=== PATIENT | male | born 1950 | race Caucasian/White ===

== ENCOUNTER 2025-04-15 13:12 | Emergency (ER) | payer OTHER, SELFPAY ==
--- NOTE | ~2025-04-15 | XR_ITS ---
EXAM/PROCEDURE: XR chest 2V - 04/15/2025 13:30 CDT HISTORY: 74 years old Male with cough, chest congestion x 8 days, non smoker TECHNIQUE: Two view(s) of the chest. COMPARISON: None available. FINDINGS: LUNGS/ PLEURA: No focal consolidation. Mild perihilar bronchial wall thickening. HEART/ MEDIASTINUM: Heart appears normal in size. BONES: No acute osseous abnormality. OTHER: Visualized upper abdomen is unremarkable. IMPRESSION: No focal consolidation. Mild perihilar bronchial wall thickening, findings suggestive of respiratory bronchiolitis. Reviewed, dictated and finalized at location A. IMPRESSION: No focal consolidation. Mild perihilar bronchial wall thickening, findings sugg estive of respiratory bronchiolitis.
[2025-04-15 13:17] VITALS: BP 133/79; PULSE 80; RESP 16; TEMP 36.4; O2SAT 97
--- NOTE | 2025-04-15 13:19 | ED_ITS ---
HPI - URI/Sore Throat General Chief Complaint: Upper Respiratory Infection Stated Complaint: Congestion/Cough Source: patient and RN notes reviewed Mode of arrival: ambulatory Limitations: no limitations History of Present Illness HPI Narrative: Patient is a 74-year-old male who presents to the [facility] with complaints of cough and congestion for the past 8-10 days. Patient reports frequent productive cough. States that he has had some nasal congestion that has caused some postnasal drip. He denies chest pain or shortness of breath. Denies recent fevers. States that his symptoms started shortly after cleaning out some weeds/overgrown plantation. Related Data Home Medications ?Medication ?Instructions ?Recorded ?Confirmed ?Last Taken ?Type amlodipine 10 mg tablet mg 04/15/25 Unknown History carbamazepine 400 mg mg PO 04/15/25 Unknown History tablet,extended release,12 hr ezetimibe 10 mg tablet mg 04/15/25 Unknown History gemfibrozil 600 mg tablet mg 04/15/25 Unknown History Allergies Allergy/AdvReac Type Severity Reaction Status Date / Time shellfish derived AdvReac Intermediate hives Verified 04/15/25 13:23 Review of Systems Review of Systems: CONSTITUTIONAL: Denies fever, chills, or sweats. EYES: Denies visual changes, redness, or discharge. ENT: Denies otalgia and sore throat. Reports congestion. CARDIOVASCULAR: Denies chest pain, palpitations, or edema. RESPIRATORY: Reports cough but denies dyspnea. GASTROINTESTINAL: Denies abdominal pain, nausea, vomiting, or diarrhea. GENITOURINARY: Denies dysuria or hematuria. SKIN: Denies rash or itching. MUSCULOSKELETAL: Denies back pain, joint pain, or myalgia. NEUROLOGIC: Denies headache, numbness, or weakness. Pertinent positives per HPI. PMFSH Comments At the time of my signature, I reviewed and agree with the nursing past medical, surgical, social, and family history. There is no relevant family history pertinent to the patient complaint. Exam Narrative: GENERAL: This is a well-nourished, well-developed patient, in no apparent distress. HEAD: normocephalic, atraumatic. EYES: Sclera clear/white. Vision is grossly intact. EARS: External ears normal. Hearing grossly intact. NOSE: External nose normal. + congestion. THROAT: Mucous membranes moist, posterior pharynx clear. NECK: Neck supple, non-tender without lymphadenopathy, masses or thyromegaly. CARDIOVASCULAR: Regular rate and rhythm without murmurs, gallops, or rubs. RESPIRATORY: Clear to auscultation. Breath sounds equal bilaterally. No wheezes, rales, or rhonchi. GASTROINTESTINAL: Abdomen soft, non-tender, nondistended. Bowel sounds are active. No hepato-splenomegaly, or palpable masses. No guarding. SKIN: warm, intact with no suspicious lesions or rash, good texture and turgor. NEURO: awake, alert, and oriented to person, place and time. There were no obvious focal neurologic abnormalities. Course Course Level of Care: Express Care Visit Vital Signs Vital signs: Vital Signs Temperature 97.5 F L 04/15/25 13:17 Pulse Rate 80 04/15/25 13:17 Respiratory Rate 16 04/15/25 13:17 Blood Pressure 133/79 04/15/25 13:17 Pulse Oximetry 97 04/15/25 13:17 Oxygen Delivery Room Air 04/15/25 13:17 Temperature 97.5 F L 04/15/25 13:17 Pulse Rate 80 04/15/25 13:17 Respiratory Rate 16 04/15/25 13:17 Blood Pressure 133/79 04/15/25 13:17 Pulse Oximetry 97 04/15/25 13:17 Oxygen Delivery Room Air 04/15/25 13:24 Reviewed MDM - URI/Sore Throat MDM Narrative Medical decision making narrative: Take steroids as directed. May use the inhaler every 4-6 hours as needed for coughing. Increase fluids at home. Avoid any and all smoke. May use a humidifier in the bedroom. Increase your Vitamin C. Follow-up with personal physician in 2-5 days. Differential Diagnosis Differential diagnosis: Likely upper respiratory infection, sinusitis, viral infection, bronchitis and other (pneumonia, strep) Lab Data Attestation: I reviewed the patient's lab results. Labs: Lab Results 04/15/25 Range/Units 13:28 POC Grp A Strep Screen Negative (Negative) Imaging Data Attestation: I personally reviewed and interpreted this imaging study as follows: Radiologist's impression: [facility] [address] [place] [address] XRay Report Signed Patient: Aman Caba : 1950 MR#: [id number] Age: 74 Acct:[id number] Loc: [facility] ADM Date: 04/15/25Attending Dr: Ordering Physician: Divya Olguin APRN Date of Service: 04/15/25 Procedure(s): XR chest 2V Accession Number(s): [id number] cc: Divya Olguin APRN; [employer] ACCOUNT EXECUTIVE PHYSICIAN~ EXAM/PROCEDURE: XR chest 2V - 04/15/2025 13:30 CDT HISTORY: 74 years old Male with cough, chest congestion x 8 days, non smoker TECHNIQUE: Two view(s) of the chest. COMPARISON: None available. FINDINGS: LUNGS/ PLEURA: No focal consolidation. Mild perihilar bronchial wall thickening. HEART/ MEDIASTINUM: Heart appears normal in size. BONES: No acute osseous abnormality. OTHER: Visualized upper abdomen is unremarkable. IMPRESSION: No focal consolidation. Mild perihilar bronchial wall thickening, findings suggestive of respiratory bronchiolitis. Reviewed, dictated and finalized at location A. Please be advised this is a medical document. It is intended for [id number] communication. It is written in medical language and may contain unfamiliar abbreviations or verbiage. Medical documents are intended to carry relevant information, facts as evident, and the clinical opinion of the practitioner at the time of the encounter. This report may have been done utilizing a voice recognition system. Attempts have been made to correct errors. However, there may be uncorrected grammatical, spelling, and recognition errors present. The file time of this note does not necessarily represent the time of service. Dictated By: Fransisca Acosta MD 04/15/25 1340 Signed By: <Electronically signed by Fransisca Acosta MD in [place]> 04/15/25 1340 Critical Care Time Critical Care Time Critical Care Time: No Discharge Plan Discharge Clinical Impression: Bronchiolitis Patient Disposition: Home Condition: Stable Instructions: Acute Bronchitis (ED) Additional Instructions: Take steroids as directed. May use the inhaler every 4-6 hours as needed for coughing. Increase fluids at home. Avoid any and all smoke. May use a humidifier in the bedroom. Increase your Vitamin C. Follow-up with personal physician in 2-5 days. Patient Language: Yi Prescriptions: New prednisone 50 mg tablet 50 mg PO DAILY 5 Days Qty: 5 0RF albuterol sulfate [Ventolin HFA] 90 mcg/actuation HFA aerosol inhaler 1 inh inhalation QID PRN (Reason: shortness of breath or wheezing) Qty: 6.7 0RF No Action carbamazepine 400 mg tablet extended release 12 hr PO amlodipine 10 mg tablet gemfibrozil 600 mg tablet ezetimibe 10 mg tablet Follow-up/Referrals: PHYSICIAN,[employer] ACCOUNT EXECUTIVE [Primary Care Provider] - Time of Disposition: 14:00
[2025-04-15 13:57] LABS: EDSTREPNEGPOS1 Negative (Negative)
== END 2025-04-15 14:06 | disposition home or self-care (01) ==
PROVIDERS: Emergency Provider Nurse Practitioner
DX: J21.9 Acute bronchiolitis, unspecified (principal)
CPT/HCPCS: 71046; 87081; 87880; 99203; G0463